=== PATIENT | female | born 1990 | race Caucasian/White ===

== ENCOUNTER 2017-03-23 21:34 | Observation (INO) | payer BC ==
[~2017-03-23 21:34] MED LIST: Lidocaine 1% 20 ML MDV INFILT ONE
[2017-03-23] MEDS ORDERED: Sodium Chloride 0.9% 1,000 ML IV ONE (21:45)
[2017-03-23] MEDS ORDERED: HYDROmorphone 2 MG/ML SDV ONE (21:48)
[2017-03-23] MEDS ORDERED: HYDROmorphone 2 MG/ML SDV IVPUSH ONE ×2 (21:50→22:46)
--- NOTE | 2017-03-23 22:52 | PCM.CONS ---
H&P History of Present Illness - General Date of Service: 03/23/17 Source of Information: Patient - History of Present Illness Initial Comments - Free Text/Narative: 27 yo wf who was taking a boot off her horse this pm after participating in a equestrian event, and was kicked in the head. She sustained a laceration to scalp involving the parietal area. There was no loc. Did have a sig amount of bleeding. I was called to address the scalp laceration. She has been stable, GSC was normal . Right Upper Head Pain Score (Numeric/FACES): 8 Past Medical History - Past Surgical History Other Head Surgeries/Procedures: wisdom teeth Social & Family History - Tobacco Use Smoking Status *Q: Current Every Day Smoker Used Tobacco, but Quit: No Smoking Cessation Information Provided To Patient: No - Alcohol Use Alcohol Use History: Yes H&P Review of Systems - Review of Systems: Review Of Systems: See Below General: Reports: No Symptoms HEENT: Reports: Headaches Pulmonary: Reports: No Symptoms Cardiovascular: Reports: No Symptoms Gastrointestinal: Reports: No Symptoms Genitourinary: Reports: No Symptoms Musculoskeletal: Reports: No Symptoms Skin: Reports: No Symptoms Neurological: Reports: Headache. Denies: Numbness, Paresthesia, Pre-Existing Deficit, Trouble Speaking, Difficulty Walking, Weakness, Change in Speech, Gait Disturbance Exam - Exam Exam: See Below - Vital Signs Vital Signs: Last Vital Signs Temp 36.7 C 03/23/17 21:35 Pulse 120 H 03/23/17 21:35 Resp 20 03/23/17 21:35 BP 162/113 H 03/23/17 21:35 Pulse Ox 100 03/23/17 21:35 Weight: 72.575 kg - Exam General: Alert, Oriented, Cooperative, Mild Distress HEENT: Conjunctiva Clear, Hearing Intact, Pupils Equal, Pupils Reactive, Other ( u shaped scalp laceration approx 10 cm involving full thickness down to the skull) Neck: Supple, Carotid Bruit Lungs: Clear to Auscultation, Normal Respiratory Effort Cardiovascular: Regular Rate, Regular Rhythm Abdomen: Normal Bowel Sounds, Soft, Pelvis Stable Rectal (Female) Exam: Deferred Extremities: Normal Inspection Skin: Wound Neurological: Cranial Nerves Intact, Reflexes Equal Bilateral, Strength Equal Bilateral, Normal Speech, Sensation Intact. No: Focal Deficit, Hyperreflexia, Hyporeflexia Neuro Extensive - Mental Status: Alert, Oriented x3, Normal Mood/Affect, Normal Cognition, Memory Intact Psychiatric: Alert - Patient Data Lab Results last 24 hrs: Laboratory Results - last 24 hr 03/23/17 03/23/17 03/23/17 Range/Units 21:41 21:41 21:41 WBC 7.6 (4.5-12.0) X10-3/uL RBC 4.62 (3.23-5.20) x10(6)uL Hgb 13.5 (11.5-15.5) g/dL Hct 38.7 (30.0-51.3) % MCV 83.8 (80-96) fL MCH 29.3 (27.7-33.6) pg MCHC 34.9 (32.2-35.4) g/dL RDW 11.7 (11.5-15.5) % Plt Count 176 (125-369) X10(3)uL MPV 9.1 (7.4-10.4) fL Neut % (Auto) 61.1 (46-82) % Lymph % (Auto) 28.5 (13-37) % [place] % (Auto) 8.0 (4-12) % Eos % (Auto) 2 (1.0-5.0) % Baso % (Auto) 1 (0-2) % Neut # (Auto) 4.7 (1.6-8.3) # Lymph # (Auto) 2.2 (0.6-5.0) # [place] # (Auto) 0.6 (0.0-1.3) # Eos # (Auto) 0.1 (0.0-0.8) # Baso # (Auto) 0.0 (0.0-0.2) # Sodium 137 (135-145) mmol/L Potassium 3.4 L (3.5-5.3) mmol/L Chloride 105 (100-110) mmol/L Carbon Dioxide 23 (23-29) mmol/L BUN 16 (5-20) mg/dL Creatinine 1.0 (0.6-1.3) mg/dL Est Cr Clr Drug Dosing 92.19 mL/min Estimated GFR (MDRD) > 60 (>60) BUN/Creatinine Ratio 16.0 (9-20) Glucose 130 H (80-116) mg/dL Calcium 9.5 (8.6-10.2) mg/dL Total Bilirubin 0.8 (0.1-1.3) mg/dL AST 22 (5-27) IU/L ALT 22 (14-26) IU/L Alkaline Phosphatase 47 L (56-112) IU/L Total Protein 7.4 (6.0-8.0) g/dL Albumin 4.6 (3.5-5.2) g/dL Globulin 2.8 g/dL Albumin/Globulin Ratio 1.6 Ethyl Alcohol < 0.01 (<0.01) % Result Diagrams: 03/23/17 21:41 03/23/17 21:41 Consult PN Assessment/Plan (1) Traumatic injury of head SNOMED Code(s): 06590452 Code(s): S09.90XA - UNSPECIFIED INJURY OF HEAD, INITIAL ENCOUNTER Current Visit: Yes Qualifiers: Encounter type: initial encounter Qualified Code(s): S09.90XA - Unspecified injury of head, initial encounter Problem List Initiated/Reviewed/Updated: Yes My Orders last 24 hours: My Active Orders 03/23/17 22:46 HYDROmorphone [Dilaudid] 1 mg IVPUSH ONETIME ONE 03/23/17 23:00 ceFAZolin [Ancef] 1 gm Sodium Chloride 0.9% [Normal Saline] 50 ml IV Q8HR Plan: Scalp laceration was cleaned and washed out. closed with tyshawn. 12 ml 1 % lido used for local. Head scan is pending, if normal will admit for observation
[2017-03-23] MEDS ORDERED: ceFAZolin 1 GM in Sodium Chloride 0.9% 50 ML IV SCH (23:00)
[2017-03-23] MEDS ORDERED: Ondansetron 4 MG/2 ML SDV IV PRN (23:02)
[2017-03-23] MEDS ORDERED: Acetaminophen/HYDROcodone 325-5 MG Tab PO PRN (23:02)
[2017-03-24] MEDS: Lactated Ringers 1,000 ML IV SCH ×2 (00:07→08:07)
[2017-03-24] MEDS: Nicotine 21 MG/24 Hr Patch TRDERM SCH ×2 (00:28→09:45)
--- NOTE | 2017-03-24 00:52 | ER ---
DATE SEEN: 03/23/2017 CHIEF COMPLAINT: Head injury. HISTORY OF PRESENT ILLNESS: This is a 27-year-old female, who [place] in by ambulance, complaining of severe headache and bleeding wound on the scalp. No neck pain. No loss of consciousness. No vomiting or seizure. Pain is severe. PAST MEDICAL HISTORY: Healthy with no active medical problems. ALLERGIES: No known allergies. SOCIAL HISTORY: Does not drink alcohol. PHYSICAL EXAMINATION: VITAL SIGNS: Pulse 120, blood pressure 162/113, and initial oxygenation 100% room air. HEAD: Normocephalic. There is a huge wound on the temporoparietal scalp that is bleeding to which pressure was placed. HEENT: Pupils equal to light. NECK: Supple. No tenderness to palpation of the spine. CHEST: Clear. NEUROLOGIC: Cranial nerves II through XII are grossly intact. Doris coma Scale is normal. Deep tendon reflexes are symmetric and brisk. No focal or lateralizing signs noted. ABDOMEN: Soft and benign. MENTAL STATUS: Normal affect. LABORATORY DATA: Initial labs are normal including a CBC and CMP. CT head report pending, but initial imaging study did not show any intracranial bleed or skull fracture. IMPRESSION: Head injury. PLAN: I consulted Dr. Renner. In the meantime, I started IV fluids and give her 1 mg Dilaudid IV. TIME SEEN: 2145 hours. /[id number] ROBEL/BRIGIDO
[2017-03-24] MEDS ORDERED: Sodium Chloride 0.9% 250 ML IV SCH (01:30)
[2017-03-24] MEDS: Morphine 2 MG/ML Syringe IVPUSH PRN ×4 (01:34→11:30)
[2017-03-24] MEDS ORDERED: ceFAZolin 1 GM in Sodium Chloride 0.9% 50 ML IV SCH ×4 (08:00→09:00)
--- NOTE | 2017-03-24 10:36 | PCM.SURGPN ---
- General Info Date of Service: 03/24/17 Functional Status: Reports: pain controlled, tolerating diet, ambulating. Denies: new symptoms - Review of Systems Skin: Reports: other (wound no further bleeding) Neurological: Reports: Headache - Patient Data Vitals - most recent: Last Vital Signs Temp 36.7 C 03/24/17 04:45 Pulse 85 03/24/17 04:45 Resp 18 03/24/17 04:45 BP 104/65 03/24/17 04:45 Pulse Ox 98 03/24/17 04:45 Weight - most recent: 72.575 kg I&O - last 24 hours: Intake & Output 03/23/17 03/24/17 03/24/17 22:59 06:59 14:59 Intake Total 706 50 Output Total 2 Balance 704 50 Med Orders - Current: Current Medications Hydrocodone Bitart/Acetaminophen ([place] 325-5 Mg) 1 tab PO Q4H PRN PRN Reason: Pain (moderate 4-6) Last Admin: 03/24/17 00:32 Dose: 1 tab Lactated Ringer's (Ringers, Lactated) 1,000 mls @ 125 mls/hr IV ASDIRECTED [facility] Last Admin: 03/24/17 08:07 Dose: 125 mls/hr Sodium Chloride (Normal Saline) 250 mls @ 30 mls/hr IV ASDIRECTED [facility] Cefazolin Sodium 1 gm/ Sodium (Chloride) 50 mls @ 200 mls/hr IV Q8H [facility] Last Admin: 03/24/17 09:05 Dose: 200 mls/hr Morphine Sulfate (Morphine) 2 mg IVPUSH Q3H PRN PRN Reason: Pain Last Admin: 03/24/17 08:07 Dose: 2 mg Nicotine (Habitrol) 21 mg TRDERM DAILY [facility] Last Admin: 03/24/17 09:45 Dose: Not Given Ondansetron HCl (Zofran) 8 mg IV Q6H PRN PRN Reason: Nausea/Vomiting Last Admin: 03/23/17 23:22 Dose: 8 mg Discontinued Medications Hydromorphone HCl (Dilaudid) Confirm Administered Dose 2 mg .ROUTE .STK-MED ONE Stop: 03/23/17 21:49 Last Admin: 03/23/17 21:57 Dose: Not Given Hydromorphone HCl (Dilaudid) 1 mg IVPUSH ONETIME ONE Stop: 03/23/17 21:51 Last Admin: 03/23/17 21:50 Dose: 1 mg Hydromorphone HCl (Dilaudid) 1 mg IVPUSH ONETIME ONE Stop: 03/23/17 22:47 Last Admin: 03/23/17 23:23 Dose: 1 mg Sodium Chloride (Normal Saline) 1,000 mls @ 999 mls/hr IV .BOLUS ONE Stop: 03/23/17 22:45 Last Infusion: 03/23/17 22:30 Dose: 125 mls/hr Cefazolin Sodium 1 gm/ Sodium (Chloride) 50 mls @ 200 mls/hr IV Q8H [facility] Cefazolin Sodium 1 gm/ Sodium (Chloride) 50 mls @ 200 mls/hr IV Q8H [facility] Last Admin: 03/23/17 23:38 Dose: 200 mls/hr - Exam Wound/Incisions: healing well, dressing dry and intact. No: erythema Neurological: no new focal deficit - Problem List & Annotations (1) Traumatic injury of head SNOMED Code(s): 85249037 Code(s): S09.90XA - UNSPECIFIED INJURY OF HEAD, INITIAL ENCOUNTER Status: Acute Current Visit: Yes Qualifiers: Encounter type: initial encounter Qualified Code(s): S09.90XA - Unspecified injury of head, initial encounter - Problem List Review Problem List Initiated/Reviewed/Updated: Yes - My Orders Last 24 Hours: Active Orders 24 hr Category Date Time Status Neuro Check [RC] 00,04,08,12,16,20 Care 03/23/17 23:06 Active Morphine Med 03/24/17 01:15 Active 2 mg IVPUSH Q3H PRN Sodium Chloride 0.9% [Normal Saline] 250 ml Med 03/24/17 01:30 Active IV ASDIRECTED ceFAZolin [Ancef] 1 gm Med 03/24/17 09:00 Active Sodium Chloride 0.9% [Normal Saline] 50 ml IV Q8H Medication Orders Hydrocodone Bitart/Acetaminophen ([place] 325-5 Mg) 1 tab PO Q4H PRN PRN Reason: Pain (moderate 4-6) Last Admin: 03/24/17 00:32 Dose: 1 tab Lactated Ringer's (Ringers, Lactated) 1,000 mls @ 125 mls/hr IV ASDIRECTED [facility] Last Admin: 03/24/17 08:07 Dose: 125 mls/hr Infusion: 03/24/17 08:07 Dose: 125 mls/hr Admin: 03/24/17 00:07 Dose: 125 mls/hr Sodium Chloride (Normal Saline) 250 mls @ 30 mls/hr IV ASDIRECTED [facility] Cefazolin Sodium 1 gm/ Sodium (Chloride) 50 mls @ 200 mls/hr IV Q8H [facility] Last Admin: 03/24/17 09:05 Dose: 200 mls/hr Morphine Sulfate (Morphine) 2 mg IVPUSH Q3H PRN PRN Reason: Pain Last Admin: 03/24/17 08:07 Dose: 2 mg Admin: 03/24/17 04:48 Dose: 2 mg Admin: 03/24/17 01:34 Dose: 2 mg Nicotine (Habitrol) 21 mg TRDERM DAILY [facility] Last Admin: 03/24/17 09:45 Dose: Not Given Admin: 03/24/17 00:28 Dose: Not Given Ondansetron HCl (Zofran) 8 mg IV Q6H PRN PRN Reason: Nausea/Vomiting Last Admin: 03/23/17 23:22 Dose: 8 mg - Assessment Assessment (Free Text/Narrative):: ready for discharge. - Plan Plan (Free Text/Narrative):: see d/c plan
[2017-03-24] MEDS ORDERED: Ibuprofen 800 MG Tab PO PRN (11:05)
[2017-03-24 15:05] VITALS: BP 107/65
== END 2017-03-24 12:40 | disposition home or self-care (01) ==
LOC: FB.ED 21:34 → FB.MS 23:02
PROVIDERS: ADMIT Surgery; ATTEND Surgery
DX: S09.90XA Unspecified injury of head, initial encounter (principal); F17.210 Nicotine dependence, cigarettes, uncomplicated; Z88.2 Allergy status to sulfonamides; W55.12XA Struck by horse, initial encounter; Z98.890 Other specified postprocedural states; Z79.899 Other long term (current) drug therapy
CPT/HCPCS: 12013; 36415; 70470; 80053; 85025; 96361; 96365; 96366; 96375; 96376; 99284; A4217; A9270; G0378; G0480; J0690; J1170; J2270; J2405; J7040; J7050; J7120; 96374